=== PATIENT | female | born 1975 | race Caucasian/White ===

== ENCOUNTER 2016-12-01 16:50 | Emergency (ER) | payer OTHER ==
[2016-12-01 17:49] VITALS: BP 128/70
--- NOTE | 2016-12-01 18:07 | UC ---
Respiratory Complaint HPI - HPI Summary HPI Summary: URI symptoms for 4d. Started with fever, ST, sinus congestion. Now moving into chest. Productive cough. "Can't cough it up, it's sticky." No fever or vomiting. Had a 7-week URI in that was treated with 3 different antibiotics. She was under the impression she was very ill and was close to hospitalization. "They kept switching my antibiotics." She wants to "stop this before it gets worse." No asthma. Former smoker, quit 3 months ago. ill with URI, in-laws also ill with URI. We had a long discussion about the viral nature of URI and their prolonged course. She is quite sure she will require an antibiotic. - History of Current Complaint Chief Complaint: UCRespiratory Stated Complaint: UPPER RESPIRATORY Time Seen by Provider: 12/01/16 17:53 Hx Last Menstrual Period: 11/26/16 - Allergies/Home Medications Allergies/Adverse Reactions: Allergies Allergy/AdvReac Type Severity Reaction Status Date / Time Sulfa Antibiotics Allergy Rash Verified 12/01/16 17:49 Home Medications: Home Medications Lfoxuatsfxbbu-Otchumjuomuij-Bx [Mucinex Fast-Max Cold & S 5-325-200 mg] 2 tab PO Q6HR PRN 12/01/16 [History Confirmed 12/01/16] Pseudoephedrine-Ibuprofen [Advil Cold & Sinus 30-200 mg] 2 cap PO Q4HR PRN 12/01 [History Confirmed 12/01/16] PMH/Surg Hx/FS Hx/Imm Hx GI/ History Of: Reports: Gastroesophageal Reflux - IBS being evaluated by GI, Ulcer - Surgical History Surgical History: Yes Surgery Procedure, Year, and Place: CHOLECYSTECTOMY, rectal abcess x 2 removed - Family History Known Family History: Positive: None, Cardiac Disease, Hypertension, Diabetes - Social History Occupation: Employed Full-time Lives: With Family Alcohol Use: Rare Substance Use Type: None Smoking Status (MU): Current Some Day Smoker Type: Cigarettes Amount Used/How Often: 1/2 TO 1 PK DAILY Have You Smoked in the Last Year: Yes When Did the Patient Quit Smoking/Using Tobacco: ? 3 months ago??? Review of Systems Constitutional: Chills, Fatigue Skin: Negative Eyes: Negative ENT: Sore Throat - now resolved, Nasal Discharge - now resolved Respiratory: Cough Cardiovascular: Negative Gastrointestinal: Negative Genitourinary: Negative Motor: Negative Neurovascular: Negative Musculoskeletal: Negative Neurological: Negative Psychological: Negative All Other Systems Reviewed And Are Negative: Yes Physical Exam Triage Information Reviewed: Yes Appearance: Well-Appearing, No Pain Distress, Well-Nourished Vital Signs: Initial Vital Signs Temp 97.8 F 12/01/16 17:44 Pulse 82 12/01/16 17:44 Resp 16 12/01/16 17:44 BP 128/70 12/01/16 17:44 Pulse Ox 98 12/01/16 17:44 Vital Signs Reviewed: Yes Eye Exam: Normal ENT: Positive: Hearing grossly normal, Pharynx normal, TMs normal, Muffled/ hoarse voice - hoarse Neck exam: Normal Neck: Positive: Supple Respiratory Exam: Normal Respiratory: Positive: Lungs clear, Normal breath sounds, No respiratory distress, No accessory muscle use Cardiovascular Exam: Normal Musculoskeletal Exam: Normal Neurological Exam: Normal Psychological Exam: Normal Skin Exam: Normal UC Diagnostic Evaluation - Laboratory O2 Sat by Pulse Oximetry: 98 Respiratory Course/Dx - Differential Dx/Diagnosis Differential Diagnosis/HQI/PQRI: Bronchitis, Lower Resp Infection, Sinusitis Provider Diagnoses: URI Discharge - Discharge Plan Condition: Stable Disposition: HOME Prescriptions: Albuterol HFA INHALER* [Ventolin HFA Inhaler*] 1 - 2 puff INH Q4H PRN #1 mdi PRN Reason: cough, wheezing Azithromycin TAB* [Zithromax TAB (Z-RENEE) 250 mg #6 tabs] 2 tab PO .TODAY, THEN 1 DAILY #1 renee Guaifenesin-Codeine [Cheratussin AC 100-10 mg/5Ml] 1 - 2 teasp PO QID PRN #120 ml MDD 30ml PRN Reason: Cough Patient Education Materials: Upper Respiratory Infection (ED) Referrals: Jayy Camp MD [Primary Care Provider] -
== END 2016-12-01 18:16 | disposition home or self-care (01) ==
LOC: UCCORT 16:50
DX: J06.9 Acute upper respiratory infection, unspecified (principal); F17.210 Nicotine dependence, cigarettes, uncomplicated; Z88.2 Allergy status to sulfonamides
CPT/HCPCS: 99212; G0463

== ENCOUNTER 2017-04-29 08:32 | Emergency (ER) | payer OTHER ==
--- NOTE | 2017-04-29 10:06 | UC ---
Abdominal Pain Female HPI - HPI Summary HPI Summary: 4 day history of bilateral low back pain, with increased intensity on the right side in the past 24 hours. Vomited x 1 last night. Otherwise eating and drinking normally. Past history of renal stones, with lithotripsy x 1. Has been several years since the last stone. Pre-diabetes, and today had high fingerstick reading. Normal voiding, normal stool passed this morning. - History of Current Complaint Chief Complaint: UCGU Stated Complaint: LOW BACK PAIN RIGHT ELEVATED BLOOD SUGAR Time Seen by Provider: 04/29/17 09:32 Hx Obtained From: Patient Hx Last Menstrual Period: 04/01/17 ?: No Onset/Duration: Gradual Onset, Lasting Days - 4 Timing: Constant Severity Initially: Moderate Severity Currently: Moderate Location: Other - right low back Radiates: No Character: Colicy, Sharp Aggravating Factor(s): Movement Alleviating Factor(s): Position, OTC Analgesics - using ibuprofen, last at 8 am , declined analgesics. Associated Signs and Symptoms: Positive: Back Pain - Risk Factors Ectopic Risk Factor: Negative Ovarian Torsion Risk Factor: Reproductive Age Allergies/Adverse Reactions: Allergies Allergy/AdvReac Type Severity Reaction Status Date / Time Sulfa Antibiotics Allergy Rash Verified 04/29/17 08:54 Home Medications: Home Medications Dexlansoprazole (NF) [Dexilant (NF)] 60 mg PO BID 04/29/17 [History Confirmed ] Ferrous Sulfate [Iron (Ferrous Sulfate)] 45 mg PO BID 04/29/17 [History Confirmed 04/29/17] Ibuprofen [Advil] 600 mg PO Q6H PRN 04/29/17 [History Confirmed 04/29/17] PMH/Surg Hx/FS Hx/Imm Hx Endocrine History: Other - pre-diabetes. Other Endocrine History: metabolic disease Cardiovascular History: Cardiac Disease GI/ History: Gastroesophageal Reflux - Surgical History Surgical History: Yes Surgery Procedure, Year, and Place: CHOLECYSTECTOMY, rectal abcess x 2 removed - Family History Known Family History: Positive: None, Cardiac Disease, Hypertension, Diabetes - Social History Occupation: Employed Full-time Lives: With Family Alcohol Use: Rare Substance Use Type: None Smoking Status (MU): Former Smoker Type: Cigarettes Amount Used/How Often: 1/2 TO 1 PK DAILY Have You Smoked in the Last Year: Yes When Did the Patient Quit Smoking/Using Tobacco: 06/29/16 Review of Systems Constitutional: Fatigue, Other - uncomfortable with pain Skin: Negative Eyes: Negative ENT: Negative Respiratory: Negative Cardiovascular: Negative Gastrointestinal: Negative Genitourinary: Negative Motor: Negative Neurovascular: Negative Musculoskeletal: Myalgia, Other: - left low back pain Neurological: Negative Psychological: Negative All Other Systems Reviewed And Are Negative: Yes Physical Exam Triage Information Reviewed: Yes Appearance: Pain Distress - moderate Vital Signs: Initial Vital Signs Temp 98.3 F 04/29/17 08:56 Pulse 83 04/29/17 08:56 Resp 16 04/29/17 08:56 BP 116/79 04/29/17 08:56 Pulse Ox 100 04/29/17 08:56 Vital Signs Reviewed: Yes ENT Exam: Normal Neck exam: Normal Respiratory: Positive: Chest non-tender, Lungs clear Cardiovascular: Positive: RRR, No Murmur Abdomen Description: Positive: Soft, CVA Tenderness (R) - moderately severe, Other: - uncomfortable lying on back. Bowel Sounds: Positive: Present Diagnostics - Laboratory Diagnostic Studies Completed/Ordered: CT without renal stones, + fatty liver. Abd Pain Female Course/Dx - Course Course Of Treatment: cause of pain unclear, analgesics declined by patient. Will follow up on fatty liver with her PMD> - Differential Dx/Diagnosis Differential Diagnosis: Constipation, Pancreatitis, Renal Colic Provider Diagnoses: mid back pain NYD. fatty liver and metabolic syndrome Discharge - Discharge Plan Condition: Stable Disposition: HOME Patient Education Materials: Non-Alcoholic Fatty Liver Disease (ED) Additional Instructions: Labs have been drawn today; please follow up with your primary care doctor to discuss treatment of fatty liver disease. The cause of your back pain is undertain, but it is not due to kidney disease.
[2017-04-29 10:27] VITALS: BP 126/79
--- NOTE | 2017-04-29 10:54 | RAD ---
CLINICAL HISTORY: Bilateral flank pain since March 2019 COMPARISON: Similar CT examination acquired August 20, 2008 TECHNIQUE: Noncontrast CT examination of the abdomen and pelvis from the lung bases through the initial tuberosities. FINDINGS: VISUALIZED LUNG BASES: The visualized lung bases are grossly clear. There is no pleural effusion. ABDOMEN AND PELVIS: Evaluation of the solid organs and vasculature is limited without intravenous contrast. There is homogenous hypoattenuation of the liver relative to the spleen. There are no focal suspicious liver masses or surface irregularity. The spleen, pancreas and adrenal glands are grossly normal in appearance. The gallbladder is surgically absent. The kidneys are normal in appearance without focal mass, calcification or signs of hydronephrosis. Evaluation of the gastrointestinal tract is limited without oral contrast. At the distal small bowel, the low midline abdomen, there is questionable mild wall thickening of the small bowel measuring up to approximately 4 mm in thickness. (Axial image 120 and coronal image 50). At the terminal ileum (coronal image 43) the small bowel wall measures just under 5 mm in thickness. There is no evidence of bowel obstruction.The patient's normal appendix is identified in the right lower quadrant with gas in the lumen measuring 6 mm in diameter. There is no mesenteric lymphadenopathy. There are scattered top normal retroperitoneal lymph nodes, for example to the left of the aorta there is a lymph node measuring 7 mm in short axis diameter (image 68). This appearance has not changed substantially since the August 20, 2008 CT examination. The pelvic viscera is normal in appearance. The abdominal aorta and iliac arteries are normal in course and diameter. Degenerative changes include multilevel loss of intervertebral disc height involving the lower thoracic and lumbar spine.There are no sinister bone lesions. IMPRESSION: 1. No renal calculi or signs of hydroureter nephrosis. 2. Questionable mild wall thickening involving the distal and terminal ileum. Evaluation is limited in the absence of IV or oral contrast. Please correlate patient's symptoms to potential infectious or inflammatory bowel etiologies. 3. CT findings are most consistent with hepatic steatosis or other chronic infiltrative disease of the liver. Please correlate to patient's LFTs. 4. Additional chronic and postoperative findings mentioned in the body the report.
[2017-04-29 13:29] LABS: Hematocrit 41 % (35-47); Hemoglobin 13.1 g/dl (12.0-16.0); Mean Corpuscular HGB Conc 32 g/dl (31-36); Mean Corpuscular Hemoglobin 27 pg (27-31); Mean Corpuscular Volume 85 fL (80-97); Mean Platelet Volume 9 um3 (7.4-10.4); Red Blood Count 4.78 10^6/ul (4.0-5.4); Red Cell Distribution Width 16 % (10.5-15); White Blood Count 9.5 10^3/ul (3.5-10.8)
[2017-04-29 13:48] LABS: Albumin 4.1 g/dL (3.2-5.2); BUN/Creatinine Ratio 16.7 (8-20); EGFR African American 125.1 (>60); EGFR Non-African American 97.3 (>60); Globulin 3.5 g/dL (2-4); Potassium 4.2 mmol/L (3.5-5.0); Total Protein 7.6 g/dL (6.4-8.9)
[2017-04-29 14:01] LABS: Ferritin 36.1 ng/mL (11-307)
== END 2017-04-29 11:45 | disposition home or self-care (01) ==
LOC: UCCORT 08:32
DX: M54.5 Low back pain (principal); Z87.442 Personal history of urinary calculi; K76.0 Fatty (change of) liver, not elsewhere classified; E88.81 Metabolic syndrome and other insulin resistance; R73.03 Prediabetes; K21.9 Gastro-esophageal reflux disease without esophagitis; Z90.49 Acquired absence of other specified parts of digestive tract; Z88.2 Allergy status to sulfonamides; Z87.891 Personal history of nicotine dependence
CPT/HCPCS: 36415; 74176; 80053; 81003; 82728; 84702; 85025; 99212; G0463

== ENCOUNTER 2017-05-04 16:40 | Emergency (ER) | payer OTHER ==
[2017-05-04 16:59] VITALS: BP 123/75
--- NOTE | 2017-05-04 18:37 | UC ---
Respiratory Complaint HPI - HPI Summary HPI Summary: The patient comes in today for: 1. ear pain, sore throat, nasal congestion, cough: Onset: 3 days ago. Palliative/provocative: NOthing. Quality: congestion in the nose and sinuses. Region: Nose and sinuses Severity: 7/10 Time: Constant. Associated symptoms: FEver: 101.7 last night. Rhinitis: None Cough production: yellow/green. Regular doctor: Dr. Freitas ([place]). Previous treatment: Ibuprofen. * - History of Current Complaint Chief Complaint: UCRespiratory Stated Complaint: HEADACHE,COUGH,EARS COMPLAINTS Time Seen by Provider: 05/04/17 17:48 Hx Obtained From: Patient, Family/I&C Technician Hx Last Menstrual Period: 04/01/17 - Allergies/Home Medications Allergies/Adverse Reactions: Allergies Allergy/AdvReac Type Severity Reaction Status Date / Time Sulfa Antibiotics Allergy Rash Verified 05/04/17 16:59 PMH/Surg Hx/FS Hx/Imm Hx Previously Healthy: No - Prediabetes GI/ History: Gastroesophageal Reflux - Surgical History Surgical History: Yes Surgery Procedure, Year, and Place: CHOLECYSTECTOMY, rectal abcess x 2 removed - Family History Known Family History: Positive: Cardiac Disease, Hypertension, Diabetes - Social History Occupation: Employed Full-time Alcohol Use: Rare Substance Use Type: None Smoking Status (MU): Former Smoker Type: Cigarettes Amount Used/How Often: 1/2 TO 1 PK DAILY Have You Smoked in the Last Year: Yes When Did the Patient Quit Smoking/Using Tobacco: ? 3 months ago??? Review of Systems Constitutional: Fever Skin: Negative Eyes: Negative ENT: Sore Throat Respiratory: Cough Cardiovascular: Negative Gastrointestinal: Negative Genitourinary: Negative All Other Systems Reviewed And Are Negative: Yes Physical Exam Triage Information Reviewed: Yes Appearance: Well-Appearing, No Pain Distress, Well-Nourished Vital Signs: Initial Vital Signs Temp 99.6 F 05/04/17 16:55 Pulse 87 05/04/17 16:55 Resp 18 05/04/17 16:55 BP 123/75 05/04/17 16:55 Pulse Ox 99 05/04/17 16:55 Vital Signs Reviewed: Yes Eyes: Positive: Conjunctiva Clear. Negative: Discharge ENT: Positive: Nasal congestion. Negative: Pharyngeal erythema, Nasal drainage , TM bulging, TM dull, TM red, Tonsillar swelling, Tonsillar exudate Dental: Negative: Gross Decay/Caries @, Dental Fracture @ Neck: Positive: Supple, Nontender, No Lymphadenopathy. Negative: Nuchal Rigidity Respiratory: Positive: Lungs clear, No respiratory distress, No accessory muscle use. Negative: Crackles, Wheezing Cardiovascular: Positive: RRR, No Murmur Abdomen Description: Positive: No Organomegaly, Soft. Negative: Nontender - She has tenderness to palpation of the abdomen in the periumbilical area., Distended, Guarding, Peritoneal Signs Musculoskeletal: Positive: Strength Intact, ROM Intact, No Edema Neurological: Positive: Alert, Muscle Tone Normal Psychological: Positive: Age Appropriate Behavior, Consolable Skin: Negative: rashes, breakdown UC Diagnostic Evaluation - Laboratory O2 Sat by Pulse Oximetry: 99 Respiratory Course/Dx - Course Course Of Treatment: The patient was told that I don't know for sure what is causing her abdominal. pain. The patient was also told that there are many causes for abdominal pain--. some which are benign and some which are life- threatening. Furthermore, it was. mentioned that the life-threatening causes of abdominal pain can present with. minimal, atypical, or even no symptoms. Becasue of these facts and the fact. that we don't have here all the testing methods commonly used to assess abdominal. pain, and their timely resuts, my recommendation is for the patient to go to. the closest ([facility] [place] ER. However, she declined to do so. - Differential Dx/Diagnosis Provider Diagnoses: sinusitis. pharyngitis. bronchitis. abdominal pain. Discharge - Discharge Plan Condition: Stable Disposition: HOME Prescriptions: Amoxicillin/Clavulanate TAB* [Augmentin TAB 875*] 875 mg PO BID #20 tab Patient Education Materials: Pharyngitis (ED), Sinusitis (ED), Acute Bronchitis (ED) Referrals: Jayy Camp MD [Primary Care Provider] - 1 Week (Please see your primary care provider in a week to see how well you are doing. If you get worse, please be seen sooner in the ER or through us.)
== END 2017-05-04 18:50 | disposition home or self-care (01) ==
LOC: UCEAST 16:40
DX: J32.9 Chronic sinusitis, unspecified (principal); J02.9 Acute pharyngitis, unspecified; J40 Bronchitis, not specified as acute or chronic; R10.9 Unspecified abdominal pain; Z87.891 Personal history of nicotine dependence
CPT/HCPCS: 99212; G0463